=== PATIENT | female | born 1975 | race Hispanic/Latino ===

== ENCOUNTER 2025-07-27 18:44 | Emergency (ER) | payer BC, SELFPAY ==
[2025-07-27 19:04] VITALS: BP 182/106
[2025-07-27 19:31] LABS: Urine Character Clear (Clear)
[2025-07-27 19:37] LABS: Hematocrit 41.8 % (37.0-47.0); Hemoglobin 13.8 g/dL (12.0-16.0); Mean Corp Hgb Conc. 33.0 g/dL (33.0-37.0); Mean Corpuscular Volume 80.1 fL (81.0-99.0); Nucleated Red Blood Cells % 0 %; Platelet Count 232 10^3/uL (130-400); Red Cell Dist. Width 13.2 % (11.5-14.5)
[2025-07-27 19:50] LABS: Urine Red Blood Cell 0-2 /HPF (0-2)
[2025-07-27 19:52] LABS: ALT (SGPT) 17 U/L (0-35); AST (SGOT) 21 U/L (14-36); Albumin 4.6 g/dl (3.5-5.0); Alkaline Phosphatase 95 U/L (38-126); Blood Urea Nitrogen 12 mg/dl (7-17); Calcium 10.1 mg/dl (8.4-10.2); Carbon Dioxide 29 mmol/L (22-30); Chloride 100 mmol/L (98-107); Glucose 104 mg/dl (70-99); Lipase 103 U/L (23-300); Potassium 4.6 mmol/L (3.5-5.1); Sodium 135 mmol/L (135-145); Total Protein 7.4 g/dl (6.3-8.2); eGFR > 60.00
[2025-07-27 22:00] VITALS: BP 138/111
[2025-07-27 22:17] VITALS: BMI 23.4
[2025-07-27] MEDS: TORADOL 30 MG IM (23:06)
--- NOTE | 2025-07-27 23:22 | ED.GENMED ---
History of Present Illness
General
Chief Complaint: Flank Pain
Source: patient and spouse
Exam Limitations: none
Time Seen by Provider: 07/27/25 22:17
Nursing documentation reviewed up to this point in time: agreed with except (Patient complains of right low back pain, not left.)
History of Present Illness
History of Present Illness:
The patient is a 50-year-old female who presents with right-sided back pain that radiates down the back of her right leg to her foot. The pain started a couple of days ago, on Friday, and she reports never having had pain like this before. She
describes the pain as worsening with activities such as lifting and bending. The pain is primarily muscular, and there is no evident trauma or injury related to the onset. There is no difficulty with bowel movements, although sitting appears to
exacerbate the pain. She denies dysuria and urgency nor hematuria. Today pain seemed worse and noted to occasionally radiate around to her right lower quadrant. She has not had a fever nor chills. No nausea nor vomiting. She has not noticed a
rash. She has not been taking anything for discomfort. The patient also experiences muscle spasm sensations.
She has history of hypertension, maintained on hydrochlorothiazide 25 mg daily.
Remote history of pyelonephritis.
She is menopausal.
Past History
Past History
ED Past Medical History: HTN and Other (Anemia; pyelonephritis)
ED Past Surgical History: Gynecological (Tubal ligation)
Social History
Tobacco: Non-smoker
Alcohol: None
Personal:
Living: with family
Employment: Not employed
Family History
Family History: Other (Noncontributory)
Phy Exam
Physical Exam
Physical Exam:
GENERAL: 50-year-old woman appears her stated age, awake and alert, pleasant, appears in no acute distress. is accompanying.
EYE: anicteric
NECK: Supple, nontender, no meningismus, no significant adenopathy.
ENT: oral mucosa is moist. No rhinorrhea.
CARDIAC: Regular rate and rhythm. no murmur.
LUNGS: Clear breath sounds bilaterally, no acute respiratory distress, no wheezes/rales/rhonchi
ABDOMEN: Soft, nondistended, without focal tenderness, no r/g, no cvat. normoactive BS.
BACK: No midline bony tenderness. Mild tenderness right lower lumbar paravertebral musculature with mild right lower lumbar paravertebral muscular muscle spasm. Straight leg raising is negative bilaterally.
NEUROLOGICAL: Alert and oriented x3, no focal neuro deficits. Gait is steady.
SKIN: Warm and dry, normal color, skin intact. No rash.
MUSCULOSKELETAL: No C/C/E. peripheral pulses are full and equal b/l. No palpable tenderness.
PSYCH: Normal and appropriate interaction.
Course
Orders/Labs/Results
Orders:
Orders
07/27/25 19:21
Urinalysis Reflex To Culture Urgent
Date Specimen was Collected: 07/27/25
Time Specimen was Collected: 19:09
Urine Microscopic Reflex Cult Urgent
Urine Culture Urgent
MONA Source: U
Specimen Description:
Date Specimen was Collected: 07/27/25
Time Specimen was Collected: 19:09
07/27/25 19:25
Complete Blood Count/With Diff Urgent
Comprehensive Metabolic Panel Urgent
Lipase Urgent
07/27/25 22:20
CT Abd/pel Without Iv Or Oral Urgent
Comment:
Reason For Exam: L flank pain x 3 days
07/27/25 22:59
Ketorolac [Toradol] 30 mg IM NOW STA
Abnormal Lab Results
07/27/25 07/27/25
19:21 19:25
MCV 80.1 L fL
(81.0-99.0)
MCH 26.4 L pg
(27.0-31.0)
Glucose 104 H mg/dl
(70-99)
Leukocyte Esterase Rfl 1+ A
(Negative)
Urine WBC (Reflex) 11-15 A /HPF
(0-5)
Urine Bacteria (Reflex) Few A
(Negative)
07/27/25 19:25
07/27/25 19:25
Vital Signs
Initial and Last Documented VS:
Initial Vital Signs
Temp Pulse Resp BP Pulse Ox
98.5 F 74 16 182/106 97
07/27/25 19:04 07/27/25 19:04 07/27/25 19:04 07/27/25 19:04 07/27/25 19:04
Last Documented Vital Signs
Temp Pulse Resp BP Pulse Ox
98.5 F 74 18 153/99 97
07/27/25 19:04 07/27/25 19:04 07/27/25 20:00 07/28/25 00:26 07/27/25 23:31
MDM/Problems Addressed
Differential Diagnosis Includes:
The Differential Diagnosis includes, in no particular order and is not limited to:
1. Sciatica
2. Lumbar strain or sprain
3. Herniated disc
4. Degenerative disc disease
5. Lumbar radiculopathy
6. Facet joint syndrome
7. Piriformis syndrome
8. Sacroiliac joint dysfunction
9. Spinal stenosis
10. Musculoskeletal pain due to overuse
11. ureteric stone
12. pyelonephritis
MDM/Problems Addressed:
Right low back pain radiating down right leg
Overall well in appearance. No red flags in history nor exam. No weakness or numbness, no saddle anesthesia, no difficulty moving bowels or bladder.
Remote history of pyelonephritis but currently denies UTI symptoms, denies fever.
She does have history of hypertension, maintained on hydrochlorothiazide 25 mg daily. She receives her prescriptions from [place] and admits that she has not followed up with a PCP for at least 2 to 3 years. She does have healthcare coverage,
resides in the area.
Initial vital signs notable for significantly elevated blood pressure 182/106, has improved to 138/110. Unclear as to patient's baseline blood pressure. She has however been compliant with daily hydrochlorothiazide.
Labs are unremarkable. Normal CBC. Unremarkable chemistries with normal BUN and creatinine.
Urinalysis shows few bacteria, 11-15 WBCs, no RBCs. It also shows 11-15 squamous epithelial cells thus I suspect a contaminated specimen and not consistent with UTI.
CT abdomen pelvis has been completed with concern for potential ureteric stone, especially in light of markedly elevated blood pressure initially.
Will medicate for pain with an IM dose of Toradol.
Chronic conditions affecting care: HTN and Kidney disease (Prior history of pyelonephritis)
*Radiology
Radiology exam reviewed: radiology read reviewed
*Pulse Oximetry
SaO2: 97
Oxygen Mode of Delivery: Room air
Patient hypoxic: no
*Critical Care Note
Total Time (30-74mins, 75-104mins- exclusive of procedures): Not Applicable
Update Note
Update Note:
00:25
CT abdomen pelvis is unremarkable.
Patient feeling improved after dose of Toradol.
I suspect musculoskeletal low back pain with right lower extremity sciatica as above.
Will treat with short course of diclofenac.
Recommend local heat, rest.
Will refer to our family practice residency clinic for follow-up.
ED Attending Note
-
Portions of this chart may have been created with voice recognition software.� Occasional wrong word or��sound alike� substitutions may have occurred due to the inherent limitations of voice recognition software.
Discharge Plan
Departure
Patient Disposition: Home (Routine Discharge)
Date of Disposition: 07/28/25
Time of Disposition: 00:28
Patient with high blood pressure during this ER visit?: No
Condition: Good
Discharge Problem:
Acute low back pain with right-sided sciatica
Instructions: Low back pain in adults, Sciatica - ED (DC)
Prescriptions:
New
diclofenac sodium 75 mg tablet,delayed release (DR/EC)
75 mg PO BID PRN (Reason: pain) Qty: 30 0RF
Referrals:
[facility] [Outside] - Call in 1-3 days for appt
UNKNOWN - PT DOES,NOT KNOW [Family Provider]
Interventions
Interventions:
*Risk Screen - Suicide Last Done: 07/28/25 00:42
*General Assessment Last Done: 07/28/25 00:42
*Neglect/Abuse Screening Last Done: 07/28/25 00:42
*ED- Fall Risk Assessment Last Done: 07/28/25 00:42
*ED COVID-19 Vaccine History Last Done: 07/28/25 00:42
*Nursing Disposition Last Done: 07/28/25 00:42
ME-Jreent-Cjedeyminp Assessment Last Done: 07/27/25 22:18
ED-Female Genitourinary Assessment Last Done: 07/27/25 22:18
Discharge Date and Time
Discharge Date/Time: 07/28/25 00:43
Print Language: BERMUDIAN
[2025-07-28 00:26] VITALS: BP 153/99
== END 2025-07-28 00:43 | disposition home or self-care (01) ==
LOC: EMR 18:44
PROVIDERS: Emergency Medicine; EMERGENCY PHYSICIAN Emergency Medicine
DX: M54.41 Lumbago with sciatica, right side (principal); I10 Essential (primary) hypertension
CPT/HCPCS: 99284; 96372; 74176; 80053; 81003; 81015; 83690; 85025; 87086